=== PATIENT | female | born 1980 | race Caucasian/White ===

== ENCOUNTER 2023-12-07 07:22 | Outpatient (CLI) | payer BC, SELFPAY ==
--- NOTE | ~2023-12-07 | MM_ITS ---
EXAMINATION: MM screening lisa BI w ye HISTORY: Screening TECHNIQUE: Craniocaudal and mediolateral oblique 3-D tomosynthesis images were obtained and synthetic 2-D images were generated. CAD analysis was submitted and interpreted. COMPARISON: No prior mammogram is available for comparison at this institution. BREAST PARENCHYMAL COMPOSITION: There are scattered areas of fibroglandular density. FINDINGS: There are asymmetries in the periareolar location of the right breast. There is no evidenc e for malignancy in the left breast. IMPRESSION: 1. Asymmetries of the periareolar location the right breast. 2. Additional mammographic views and possible breast ultrasound are recommended. BI-RADS Category 0: Incomplete: Needs additional imaging evaluation. Reviewed, dictated and finalized at location A. OGY PHYSICIAN ASSISTANT IMPRESSION: 1. Asymmetries of the periareolar location the right breast. 2. Additional mammographic views and possible breast ultrasound are recommended . BI-RADS Category 0: Incomplete: Needs additional imaging evaluation.
== END 2023-12-07 07:23 | disposition home or self-care (01) ==
LOC: ANHIMG 07:50
PROVIDERS: PCP Family Medicine; Visit Provider Obstetrics & Gynecology
DX: Z12.31 Encounter for screening mammogram for malignant neoplasm of breast (principal); R92.8 Other abnormal and inconclusive findings on diagnostic imaging of breast
CPT/HCPCS: 77063; 77067

== ENCOUNTER 2023-12-07 08:24 | Outpatient (CLI) | payer BC, SELFPAY ==
--- NOTE | 2023-12-07 08:28 | ECG_ITS ---
Measurements Intervals [place] Rate: 96 P: 69 MD: 168 QRS: 34 QRSD: 76 T: 18 QT: 354 QTc: 449 Interpretive Statements SINUS RHYTHM WITH SINUS ARRHYTHMIA LOW QRS VOLTAGE- PRECORDIAL LEADS BORDERLINE T WAVE ABNORMALITY- ANT/INF LEADS BASELINE ARTIFACT- II, III, AVR, AVF, V3-V6 BORDERLINE ECG NO PREVIOUS ECG AVAILABLE FOR COMPARISON Electronically Signed On 12-07-2023 8:45:09 [employer] by Oscar Carranza D.O.
[2023-12-07 09:10] LABS: Anion Gap 8 mmol/L (8-16); Blood Urea Nitrogen 14 mg/dL (7-17); Calcium 9.1 mg/dL (8.4-10.2); Carbon Dioxide 26 mmol/L (22-30); Chloride 104 mmol/L (98-107); Estimated Glomerular Filt Rate > 60; Glucose 116 mg/dL (65-110); Potassium 4.2 mmol/L (3.4-5.0); Sodium 138 mmol/L (137-145)
[2023-12-07 09:36] LABS: Hematocrit 46.6 % (37.0-47.0); Hemoglobin 15.3 g/dL (12.0-15.0); Mean Corpuscular HGB Conc 32.8 g/dl (32-36); Mean Corpuscular Hemoglobin 27.5 pg (26-34); Mean Corpuscular Volume 83.7 fl (80-100); Mean Platelet Volume 8.6 fl (7.4-10.4); Platelet Count Result 520 k/mm3 (150-375); Red Blood Count 5.57 M/mm3 (4.2-5.4); Red Cell Distribution Width 14.5 % (11.5-14.5); White Blood Count 16.9 K/mm3 (4.5-10.0)
== END 2023-12-07 08:25 | disposition home or self-care (01) ==
LOC: ANHSURGERY 08:28
PROVIDERS: Anesthesiology; PCP Family Medicine; Visit Provider Obstetrics & Gynecology
DX: N92.0 Excessive and frequent menstruation with regular cycle (principal); E11.9 Type 2 diabetes mellitus without complications; Z01.818 Encounter for other preprocedural examination
CPT/HCPCS: 36415; 80048; 85027; 86850; 86900; 86901; 93005

== ENCOUNTER 2023-12-15 01:07 | Day surgery (SDC) | payer BC, SELFPAY ==
[2023-12-05 10:49] VITALS: BMI 46.0
--- NOTE | 2023-12-05 10:56 | PC.NURSE ---
Report to the Outpatient Waiting Room, entrance under the green pavilion located off [facility], at time 7:30 on date 12/15/23. Planned Procedure Time: 9:30. Time changes happen often and if your time is changed the preop area will call you the afternoon before. - You and your visitor will be asked to self-screen and do not enter if you have any COVID symptoms. - A mask is optional within the hospital at this time. Patients may have clear liquids (water, carbonated beverages, clear teas, apple juice) until 3 hours prior to surgery (6:30) with a maximum of 20 ounces. - No food from midnight until time of surgery Take the following medications with a SIP of water the morning of surgery: METOPROLOL DO NOT STOP ANY OF YOUR OTHER PRESCRIPTION MEDICATIONS PRIOR TO SURGERY ?EXCEPT THE FOLLOWING Medications to discontinue per physician: VITAMINS/SUPPLEMENTS Date to take last dose: 12/11/[address] MCKENNA REGARDING ASPIRIN Please no make-up, nail sinhala, hairspray, perfume, deodorant, or body powder the day of surgery. No jewelry (including any body piercings) or valuables the day of surgery, leave them at home. Please take a shower or bath the night before, or the morning of, surgery with an antibacterial soap. Wear comfortable, loose fitting clothing. - Jewelry must be removed prior to entering the operating room. Rings and piercings that are not removed may be cut off. - The hospital will not accept responsibility for valuables. - Please leave all valuables, including medications, at home the day of surgery. If you are going home after surgery, a licensed road train driver must drive you home. - NO public transportation without another adult if you receive anesthesia. - We recommend that an adult stay with you for 24 hours following discharge. - We also recommend that you do not drive, make important decision, drink alcoholic beverages, or take any drugs that were not prescribed by your health care provider for at least 24 hours after your discharge time. Follow any additional instructions given to you from your surgeon. If you or anyone in your household have experienced Covid symptoms in the past week, please notify your surgeon or the nurse liaison at the phone number below for possible testing. Telephone instructions given to PT - KAYLYN ENCINAS and asked if any additional questions and then verbalized understanding. Patient advised to call surgeon office or pre surgery nurse liaison [phone] if any additional questions.
--- NOTE | 2023-12-13 08:19 | PM.IMHP ---
H&P: HPI History of Present Illness Date/Time: 12/13/23 08:19 43-year-old female 1 para 0010 presents with complaints of heavy vaginal bleeding clotting discomfort. She has an IUD in place which had worked well for the 1st 4-5 years after placement, over last 6-9 months she is at increased bleeding and cramping to the point now she is losing 2-3 days per month from work and normal social activities. She is not interested in replacement of IUD, also control pills are not an option due to headaches and all laboratory values which were ordered are normal, and ultrasound showed no significant abnormalities that would account for her symptomatology. Therefore presents today for surgical management of her complaints. Chief Complaint: Menometrorrhagia with dysmenorrhea Review of Systems Review of Systems: All systems reviewed & are unremarkable except as noted in HPI and below PMFSH Past Medical History Medical History Abnormal Pap smear of cervix 05/17/2017 ascus neg hpv; 07/04/2018 ascus, neg hpv Anxiety and depression Benign hypertension Diabetes mellitus Encounter for IUD insertion 07/01/17 Mirena insertion Fatty liver Generalized anxiety disorder Heart palpitations Metabolic syndrome X Morbid (severe) obesity due to excess calories Nephrolithiasis PCOS (polycystic ovarian syndrome) Screening mammogram, encounter for Family History Family History Father Hypertension Family history of diabetes mellitus in first degree relative Elevated platelet count Mother Hyperlipidemia Bipolar disorder Grandparent Cerebrovascular accident maternal grandfather paternal grandfather maternal grandmother Heart disease maternal grandfather paternal grandfather maternal grandmother Dementia Diabetes mellitus maternal grandfather Osteoporosis paternal grandmother Social History Social History Social History: Smoking status: Never smoker Second hand tobacco smoke exposure: No Alcohol intake: current Alcohol use details: 1-2/MONTH Substance use: never Substance use type: does not use Other substance usage details: 1 x month Lack of Transportation: No Lack of Food: Never True Current Housing: I Have Housing Concerned About Future Housing: No Difficulty Paying Gas/Electric Bills: No Difficulty Paying for Meds: No Currently Unemployed: YES Education: Bachelor's Degree Difficulty w/ Childcare or Family Care: No Living arrangements: with family Additional living arrangements comments: Pt lives with spouse Occupation/Education: unemployed Gender identity (if verbalized by the patient): Female Sexual Orientation (if Verbalized by the Patient): Straight or Heterosexual Spiritual care concerns: No Meds Home Medications and Allergies Home Medications Medication Instructions Recorded Confirmed Type aspirin 81 mg tablet,delayed 81 mg PO DAILY 06/29/23 12/05/23 History release cetirizine 10 mg tablet See Rx Instructions .Route 08/01/23 12/05/23 Rx .COMPLEX #90 tabs empagliflozin 10 mg tablet See Rx Instructions .Route 09/26/23 12/05/23 Rx (Jardiance) .COMPLEX #90 tabs metoprolol tartrate 25 mg tablet See Rx Instructions .Route 10/13/23 12/05/23 Rx .COMPLEX #180 tabs sitagliptin phos 100 mg-metformin 1 tablet PO QPM #90 tabs 11/03/23 12/05/23 Rx ER 1,000 mg tablet,extend rel 24h mp (Janumet XR) dextroamphetamine-amphetamine ER 25 mg PO QAM #30 caps 11/14/23 12/05/23 Rx 25 mg 24hr capsule,extend release (Adderall XR) Saccharomyces boulardii 250 mg 250 mg PO DAILY 12/05/23 12/05/23 History capsule (Daily Probiotic (S. boulardii)) cholecalciferol (vitamin D3) 25 25 mcg PO DAILY 12/05/23 12/05/23 History mcg (1,000 u
[2023-12-15] VITALS (10 sets, daily range): BP systolic 88–122; BP diastolic 63–81; PULSE 70–106; RESP 12–18; TEMP 36.1–36.8; O2SAT 92–100
[2023-12-15] MEDS: ACETAMINOPHEN 500 MG TABLET 1000 MG PO (07:44)
[2023-12-15 08:17] LABS: Glucose Point of Care 120 mg/dl (65-105)
--- NOTE | 2023-12-15 08:19 | WPDANESEPPF ---
Anes - Initial Pre Proc Eval Procedure: Operation Date: 12/15/23 09:30 Proposed Procedures p Robotic Assisted Total Laparoscopic Hysterectomy with Bilateral Salpingectomy - Toby Campos MD Date/Time: 12/15/23 08:19 Surgeon: Toby Campos MD Pre Op Diagnosis: menorrhagia Patient Data Age: 43 Gender: F Height: 1.6 m Weight: 116.4 kg Last Vital Signs Temp 36.1 C L 12/15/23 07:57 Pulse 98 12/15/23 07:57 Resp 18 12/15/23 07:57 BP 122/73 12/15/23 07:57 Pulse Ox 99 12/15/23 07:57 O2 Del Method Room Air 12/15/23 07:57 Allergies Allergy/AdvReac Type Severity Reaction Status Date / Time cinnamon Allergy Unknown Hives, Verified 12/15/23 07:41 Swelling, Headaches, Diarrhea Home Medications Medication Instructions Recorded Confirmed Type aspirin 81 mg tablet,delayed 81 mg PO DAILY 06/29/23 12/15/23 History release cetirizine 10 mg tablet See Rx Instructions .Route 08/01/23 12/15/23 Rx .COMPLEX #90 tabs empagliflozin 10 mg tablet See Rx Instructions .Route 09/26/23 12/15/23 Rx (Jardiance) .COMPLEX #90 tabs metoprolol tartrate 25 mg tablet See Rx Instructions .Route 10/13/23 12/15/23 Rx .COMPLEX #180 tabs sitagliptin phos 100 mg-metformin 1 tablet PO QPM #90 tabs 11/03/23 12/15/23 Rx ER 1,000 mg tablet,extend rel 24h mp (Janumet XR) dextroamphetamine-amphetamine ER 25 mg PO QAM #30 caps 11/14/23 12/15/23 Rx 25 mg 24hr capsule,extend release (Adderall XR) Saccharomyces boulardii 250 mg 250 mg PO DAILY 12/05/23 12/15/23 History capsule (Daily Probiotic (S. boulardii)) cholecalciferol (vitamin D3) 25 25 mcg PO DAILY 12/05/23 12/15/23 History mcg (1,000 unit) tablet (Vitamin D3) multivitamin 1 tablet PO DAILY 12/05/23 12/15/23 History Laboratory Tests 12/15/23 08:12 POC Capillary Glucose 120 H mg/dl (65-105) Patient hx anesthesia problems: none Family hx anesthesia problems: none Results Review: All pre-operative results and documents have been reviewed as part of the pre-operative evaluation. [facility] Past Medical History Medical History Abnormal Pap smear of cervix 05/17/2017 ascus neg hpv; 07/04/2018 ascus, neg hpv Anxiety and depression Benign hypertension Diabetes mellitus Encounter for IUD insertion 07/01/17 Mirena insertion Fatty liver Generalized anxiety disorder Heart palpitations Metabolic syndrome X Morbid (severe) obesity due to excess calories Nephrolithiasis PCOS (polycystic ovarian syndrome) Screening mammogram, encounter for Family History Family History Father Hypertension Family history of diabetes mellitus in first degree relative Elevated platelet count Mother Hyperlipidemia Bipolar disorder Grandparent Cerebrovascular accident maternal grandfather paternal grandfather maternal grandmother Heart disease maternal grandfather paternal grandfather maternal grandmother Dementia Diabetes mellitus maternal grandfather Osteoporosis paternal grandmother Social History Social History Social History: Smoking status: Never smoker Second hand tobacco smoke exposure: No Alcohol intake: current Alcohol use details: 1-2/MONTH Substance use: never Substance use type: does not use Other substance usage details: 1 x month Lack of Transportation: No Lack of Food: Never True Current Housing: I Have Housing Concerned About Future Housing: No Difficulty Paying Gas/Electric Bills: No Difficulty Paying for Meds: No Currently Unemployed: YES Education: Bachelor's Degree Difficulty w/ Childcare or Family Care: No Living arrangements: with family Additional living arrangements comments: Pt lives with spouse Occupation/Educat
[2023-12-15] MEDS: LACTATED RINGERS 1,000 ML 30 ML IV CONT ×2 (08:23→11:17)
[2023-12-15] MEDS: SCOPOLAMINE 1 MG PATCH 1 PATCH TRANSDERM (08:23)
[2023-12-15] MEDS: KETOROLAC 15 MG/ML VIAL (*BKC) IV PUSH (08:26)
--- NOTE | 2023-12-15 09:10 | WPDHPUPDATE1 ---
History and Physical Update Update Date/Time: 12/15/23 09:10 History and Physical has been reviewed, including an updated exam of the patient. There are NO changes in the patient's condition. Risks, benefits, and alternatives have been discussed and questions answered. Patient agrees to proceed with procedure.
[2023-12-15] MEDS: ceFAZolin 2 GM/D5W 50 ML 2 GM/50 ML BAG IVPB (09:45)
--- NOTE | 2023-12-15 11:02 | P.OP_ITS ---
Procedure Note - Detailed Date of Procedure 12/15/23 Pre-op Diagnosis 1. Menometrorrhagia Post-op Diagnosis Same (2. Uterine fibroid) Procedure Performed Description of procedure: Patient prepped in usual manner for this procedure. Cervical instruments were placed for uterine mobility throughout the case. Abdominal trocar sites were then marked and placed under direct visualization. [employer] system was test these trocars and instruments were placed. Surgeon then moved to the console. Posterior fibroid was noted, otherwise uterus tubes noted without abnormality. Mesial salpinx was cauterized and cut to removed without difficulty. Round ligament was then cauterized cut bladder flap developed difficulty, posterior dissected as well. Uterine vessels were then skeletonized cauterized and cut. Posterior colpotomy incision was made this was carried circumferentially to separate the cervix from the vagina. Uterus was delivered into the vagina, and colpotomy incision was then closed using V lock suture from the right and midline and left little midline with good approximation and hemostasis noted. Irrigation was undertaken. There was no further bleeding. Surgicel was then placed over the vaginal cuff empirically. Gas was allowed to escape incisions approximated 4-0 Monocryl after the instruments removed. Patient was then sent to recovery room in stable condition. Surgeon Toby Campos MD Anesthesia General Findings 1. Fibroid uterus 2. tubes and ovaries that abnormality Description of Procedure Procedure performed: 1. Robotic assisted hysterectomy with bilateral salpingectomy Estimated Blood Loss 50 Drains No Packing No Pathology Yes Complications No immediate complications Condition Stable Disposition PACU [facility] Billing Surgery - Charge Forward: Surgery Billing
[2023-12-15 11:25] LABS: Glucose Point of Care 146 mg/dl (65-105)
[2023-12-15] MEDS: LACTATED RINGERS 1,000 ML 125 ML IV CONT (13:15)
[2023-12-15] MEDS: MORPHINE SULFATE (*CRX) 4 MG/ML INJ IV PUSH (13:23)
[2023-12-15] MEDS: KETOROLAC 30 MG/ML VIAL (*BKC) IV PUSH (15:26)
[2023-12-15] MEDS: ONDANSETRON INJ 4 MG/2 ML VIAL IV PUSH (15:27)
[2023-12-15] MEDS: HYDROcodone/acetaminophen (*CRX) 5-325 MG TABLET 1 TAB PO (20:27)
[2023-12-16] VITALS: BP 118/83; PULSE 100; RESP 18; TEMP 37; O2SAT 97
[2023-12-16] MEDS: HYDROcodone/acetaminophen (*CRX) 5-325 MG TABLET 1 TAB PO
[2023-12-16 04:10] VITALS: BP 109/70; PULSE 98; RESP 18; TEMP 37
[2023-12-16] MEDS: HYDROcodone/acetaminophen (*CRX) 10-325 MG TABLET 1 TAB PO ×2 (04:10→08:13)
[2023-12-16] MEDS: IBUPROFEN 600 MG TABLET PO (04:10)
[2023-12-16 04:45] LABS: Basophils Percent Auto 0.2 % (0.2-1.2); Eosinophils Percent Auto 0.1 % (0-4.4); Hematocrit 41.7 % (37.0-47.0); Hemoglobin 13.1 g/dL (12.0-15.0); Immature Granulocyte Absolute 0.05 K/mm3 (0.00-0.031); Immature Granulocyte Percent A 0.3 % (0-0.5); Lymphocytes Absolute Auto 2.82 K/mm3 (0.9-3.2); Lymphocytes Percent Auto 16.9 % (18.3-44.2); Mean Corpuscular HGB Conc 31.4 g/dl (32-36); Mean Corpuscular Hemoglobin 26.5 pg (26-34); Mean Corpuscular Volume 84.2 fl (80-100); Mean Platelet Volume 8.4 fl (7.4-10.4); Monocytes Absolute Auto 0.9 K/mm3 (0.1-0.6); Monocytes Percent Auto 5.1 % (2.6-8.5); Neutrophils Percent Auto 77.4 % (45.5-73.1); Platelet Count Result 496 k/mm3 (150-375); Red Blood Count 4.95 M/mm3 (4.2-5.4); Red Cell Distribution Width 14.5 % (11.5-14.5); White Blood Count 16.7 K/mm3 (4.5-10.0)
[2023-12-16 07:30] VITALS: BP 113/68; PULSE 103; RESP 16; TEMP 36.6; O2SAT 96
[2023-12-16] MEDS: SIMETHICONE 80 MG TAB.CHEW PO (08:10)
[2023-12-16] MEDS: SACCHAROMYCES BOULARDII 250 MG CAPSULE PO (08:10)
[2023-12-16] MEDS: CHOLECALCIFEROL 1,000 UNITS TABLET 1000 UNITS PO (08:12)
[2023-12-16] MEDS: metFORMIN HCL XR 500 MG TAB.SR.24H 1000 MG PO (08:12)
--- NOTE | 2023-12-16 10:06 | WPDANESPN ---
Anes - Prog Note Post-Op Date/Time: 12/16/23 10:06 Cardiovascular status: normal Respiratory status: normal Airway patency: baseline Mental status: baseline Post-Op hydration status: normal Vital Signs: Last Vital Signs Temp 36.6 C 12/16/23 07:30 Pulse 103 H 12/16/23 07:30 Resp 16 12/16/23 07:30 BP 113/68 12/16/23 07:30 Pulse Ox 96 12/16/23 07:30 O2 Del Method Room Air 12/16/23 04:10 O2 Flow Rate 8 12/15/23 11:45 Pain Score (VAS): 0 I/O: Intake & Output 12/15/23 12/16/23 12/16/23 23:59 07:59 15:59 Intake Total 1050 Output Total 400 Balance 650 Laboratory Tests 12/16/23 04:22 12/15/23 12/16/23 11:21 04:22 WBC 16.7 H RBC 4.95 Hgb 13.1 Hct 41.7 MCV 84.2 MCH 26.5 MCHC 31.4 L RDW 14.5 Plt Count 496 H MPV 8.4 Immature Gran % (Auto) 0.3 Neut % (Auto) 77.4 H Lymph % (Auto) 16.9 L [place] % (Auto) 5.1 Eos % (Auto) 0.1 Baso % (Auto) 0.2 Lymph # (Auto) 2.82 [place] # (Auto) 0.9 H Eos # (Auto) 0.0 Baso # (Auto) 0.0 Abs Immat Gran (auto) 0.05 H Absolute Neuts (auto) 13.0 H Absolute Nucleated RBC 0.0 Nucleated RBC % 0.0 POC Capillary Glucose 146 H Post-procedural complaints: none Patient Feedback: Patient satisfied with anesthetic care.
== END 2023-12-16 10:36 | disposition home or self-care (01) ==
LOC: ANHSURGERY 07:31 → ANHOB2 12:37
PROVIDERS: PCP Family Medicine; Visit Provider Obstetrics & Gynecology
PROC: (CPT 58571; principal; 2023-12-15 09:30)
DX: N92.1 Excessive and frequent menstruation with irregular cycle (principal); D25.1 Intramural leiomyoma of uterus; I10 Essential (primary) hypertension; E11.9 Type 2 diabetes mellitus without complications; F41.8 Other specified anxiety disorders; E28.2 Polycystic ovarian syndrome; K76.0 Fatty (change of) liver, not elsewhere classified; E66.01 Morbid (severe) obesity due to excess calories; Z68.42 Body mass index [BMI] 45.0-49.9, adult; Z79.84 Long term (current) use of oral hypoglycemic drugs; Z79.82 Long term (current) use of aspirin
CPT/HCPCS: 58571; S2900; 36415; 80048; 82948; 85025; 85027; 86850; 86900; 86901; 88307; 93005; 99199; A9270; J0690; J1100; J1170; J1885; J2001; J2250; J2270; J2405; J2704; J3010; J7030; J7120

== ENCOUNTER 2024-02-08 14:03 | Outpatient (CLI) | payer BC, SELFPAY ==
[2024-02-08 14:16] LABS: Basophils Absolute Auto 0.1 K/mm3 (0.0-0.1); Basophils Percent Auto 0.4 % (0.2-1.2); Eosinophils Absolute Auto 0.2 K/mm3 (0-0.3); Eosinophils Percent Auto 1.4 % (0-4.4); Hematocrit 45.2 % (37.0-47.0); Hemoglobin 14.6 g/dL (12.0-15.0); Immature Granulocyte Absolute 0.04 K/mm3 (0.00-0.031); Immature Granulocyte Percent A 0.4 % (0-0.5); Lymphocytes Absolute Auto 3.17 K/mm3 (0.9-3.2); Mean Corpuscular HGB Conc 32.3 g/dl (32-36); Mean Corpuscular Hemoglobin 27.4 pg (26-34); Mean Corpuscular Volume 84.8 fl (80-100); Mean Platelet Volume 8.2 fl (7.4-10.4); Monocytes Absolute Auto 0.5 K/mm3 (0.1-0.6); Monocytes Percent Auto 4.7 % (2.6-8.5); Neutrophils Absolute Auto 7.4 K/mm3 (1.3-6.7); Neutrophils Percent Auto 65.1 % (45.5-73.1); Platelet Count Result 526 k/mm3 (150-375); Red Blood Count 5.33 M/mm3 (4.2-5.4); Red Cell Distribution Width 14.2 % (11.5-14.5); White Blood Count 11.3 K/mm3 (4.5-10.0)
[2024-02-08 14:20] LABS: Blood Urea Nitrogen 13 mg/dL (8-26); Carbon Dioxide 27 mmol/L (22-30); Chloride 102 mmol/L (98-109); Estimated Glomerular Filt Rate > 60; Glucose 153 mg/dL (70-105); Ionized Calcium (POC) 1.17 mmol/L (1.11-1.31); Potassium 4.2 mmol/L (3.5-4.9); Sodium 141 mmol/L (138-146)
== END 2024-02-08 14:04 | disposition home or self-care (01) ==
LOC: ANHLAB 14:05
PROVIDERS: PCP Family Medicine; Visit Provider Internal Medicine Hematology & Oncology
DX: D75.838 Other thrombocytosis (principal)
CPT/HCPCS: 36415; 80047; 85025

== ENCOUNTER 2024-05-02 10:43 | Outpatient (CLI) | payer BC, SELFPAY ==
--- NOTE | ~2024-05-02 | MMUS_ITS ---
EXAMINATION: MM diagnostic mammo unilat RT, US breast RT limited HISTORY: Right breast asymmetry TECHNIQUE: Additional 3-D tomosynthesis images of the right were performed and synthetic 2-D images w ere generated. CAD analysis was submitted and interpreted. High resolution limited right breast ultra sound was performed. COMPARISON: 12/07/2023 FINDINGS: MAMMOGRAPHIC FINDINGS: Seen only on the spot compression MLO view, there is suggestion of a circumscribed lobulated lower ri ght breast subareolar mass, however this cannot be clearly identified on the other spot compression v iews. No distortion or microcalcification is seen. ULTRASOUND: Sonographic imaging of the inferior right breast was performed. No solid or cystic lesion identified. IMPRESSION: Questionable lower right breast mass seen on a single view, with overall probable benign imaging earnestine racteristics. No sonographic correlate seen. As such, six-month follow-up exam of the right breast re commended to reassess. BI-RADS category 3, probably benign findings. Reviewed, dictated and finalized at location M. IMPRESSION: Questionable lower right breast mass seen on a single view, with overall proba ble benign imaging characteristics. No sonographic correlate seen. As such, six -month follow-up exam of the right breast recommended to reassess. BI-RADS category 3, probably benign findings.
== END 2024-05-02 10:44 | disposition home or self-care (01) ==
LOC: ANHIMG 10:48
PROVIDERS: PCP Family Medicine; Visit Provider Obstetrics & Gynecology
DX: N64.89 Other specified disorders of breast (principal); R92.8 Other abnormal and inconclusive findings on diagnostic imaging of breast
CPT/HCPCS: 76642; 77065

== ENCOUNTER 2024-08-15 15:09 | Outpatient (CLI) | payer BC, SELFPAY ==
[2024-08-15 15:19] LABS: Basophils Absolute Auto 0.1 K/mm3 (0.0-0.1); Basophils Percent Auto 0.4 % (0.2-1.2); Eosinophils Absolute Auto 0.1 K/mm3 (0-0.3); Eosinophils Percent Auto 0.9 % (0-4.4); Hematocrit 44.5 % (37.0-47.0); Hemoglobin 14.6 g/dL (12.0-15.0); Immature Granulocyte Absolute 0.05 K/mm3 (0.00-0.031); Immature Granulocyte Percent A 0.3 % (0-0.5); Lymphocytes Absolute Auto 3.62 K/mm3 (0.9-3.2); Lymphocytes Percent Auto 24.4 % (18.3-44.2); Mean Corpuscular HGB Conc 32.8 g/dl (32-36); Mean Corpuscular Hemoglobin 28.1 pg (26-34); Mean Corpuscular Volume 85.6 fl (80-100); Mean Platelet Volume 8.2 fl (7.4-10.4); Monocytes Absolute Auto 0.9 K/mm3 (0.1-0.6); Monocytes Percent Auto 5.8 % (2.6-8.5); Neutrophils Absolute Auto 10.1 K/mm3 (1.3-6.7); Neutrophils Percent Auto 68.2 % (45.5-73.1); Platelet Count Result 485 k/mm3 (150-375); White Blood Count 14.8 K/mm3 (4.5-10.0)
[2024-08-15 15:23] LABS: Blood Urea Nitrogen 13 mg/dL (8-26); Carbon Dioxide 25 mmol/L (22-30); Chloride 101 mmol/L (98-109); Estimated Glomerular Filt Rate > 60; Glucose 128 mg/dL (70-105); Ionized Calcium (POC) 1.13 mmol/L (1.11-1.31); Potassium 3.8 mmol/L (3.5-4.9); Sodium 138 mmol/L (138-146)
== END 2024-08-15 15:10 | disposition home or self-care (01) ==
LOC: ANHLAB 15:10
PROVIDERS: PCP Family Medicine; Visit Provider Internal Medicine Hematology & Oncology
DX: D75.838 Other thrombocytosis (principal)
CPT/HCPCS: 36415; 80047; 85025

== ENCOUNTER 2024-11-02 12:08 | Outpatient (CLI) | payer BC, SELFPAY ==
--- NOTE | ~2024-11-02 | MMUS_ITS ---
EXAMINATION: MM diagnostic lisa BI w ye, US breast RT limited HISTORY: 43-year-old woman presents or diagnostic follow-up of right periareolar asymmetries describe d on baseline mammography of 12/07/2023 TECHNIQUE: 3-D tomosynthesis images of the bilateral breasts were performed in the CC and MLO positio ns and synthetic 2-D images were generated. CAD analysis was submitted and interpreted. High resoluti on limited right breast ultrasound was performed. COMPARISON: 05/02/2024 and 12/07/2023 BREAST PARENCHYMAL COMPOSITION:Not Dense. There are scattered areas of fibroglandular density. FINDINGS: MAMMOGRAPHIC FINDINGS: Reniform shaped focus of increased density within the upper slightly inner right breast, between 5 an d 6 cm from the nipple, likely an intramammary lymph node for which focused ultrasound will be perfor med for confirmation. Punctate calcifications detected bilaterally, stable and benign in appearance. No additional discrete masses, architectural distortion, significant asymmetries or suspicious microc alcifications detected bilaterally. ULTRASOUND: At the 12:00 position of the right breast approximately 6 cm from the nipple is a reniform shaped foc us of decreased echogenicity measuring 5.2 x 2.7 x 5.1 mm, with a vascular hilum with an intramammary lymph node and corresponding to the abnormality seen mammographically. Sonographic evaluation of the remainder of the right breast demonstrates benign fibroglandular elemen ts without a cystic or solid lesion of concern. IMPRESSION: Intramammary lymph node within the right breast which no further follow-up is needed. BI-RADS Category 2: Benign findings. Resumption of yearly mammography is recommended. Reviewed, dictated and finalized at location A. ING ASSISTANT IMPRESSION: Intramammary lymph node within the right breast which no further follow-up is n eeded. BI-RADS Category 2: Benign findings. Resumption of yearly mammography is recommended.
== END 2024-11-02 12:09 | disposition home or self-care (01) ==
PROVIDERS: PCP Family Medicine; Visit Provider Obstetrics & Gynecology
DX: N64.89 Other specified disorders of breast (principal); N63.10 Unspecified lump in the right breast, unspecified quadrant; R92.8 Other abnormal and inconclusive findings on diagnostic imaging of breast
CPT/HCPCS: 76642; 77062; 77066; G0279